=== PATIENT | male | born 1990 ===

== ENCOUNTER 2021-05-08 14:50 | Emergency (ER) | payer OTHER ==
[~2021-05-08] VITALS: Ht 167.6 cm; Wt 95.3 kg
[2021-05-08] MEDS ORDERED: KETOROLAC TROMETH 30 MG/ML 1ML VIAL IV ONE (15:30)
[2021-05-08 16:00] VITALS: BP 123/83
== END 2021-05-08 17:03 | disposition home or self-care (01) ==
LOC: EDUNIT# 14:50 → ER 14:50 → EDBD 14:50 → ER 17:03
DX: S06.0X0A Concussion without loss of consciousness, initial encounter (principal); M62.838 Other muscle spasm; V89.2XXA Person injured in unspecified motor-vehicle accident, traffic, initial encounter; Y93.89 Activity, other specified; Y92.89 Other specified places as the place of occurrence of the external cause; Y99.8 Other external cause status
CPT/HCPCS: 70450; 72125; 73130; 96374; 99284; J1885